=== PATIENT | female | born 1965 | race Two or more races ===

== ENCOUNTER 2017-01-15 10:33 | Emergency (ER) | payer SELFPAY ==
[2017-01-15 11:05] LABS: HCG,QUALITATIVE URINE NEGATIVE
[2017-01-15] MEDS ORDERED: ACETAMINOPHEN 325 MG TABLET ONE (12:07)
[2017-01-15] MEDS ORDERED: KETOROLAC TROMETHAMINE 30 MG/ML 1 ML VIAL ONE (12:07)
[2017-01-15] MEDS ORDERED: DEXAMETHASONE 4 MG TABLET ONE (12:36)
== END 2017-01-15 12:52 | disposition home or self-care (01) ==
LOC: ED 10:33
DX: M54.5 Low back pain (principal); F17.210 Nicotine dependence, cigarettes, uncomplicated
CPT/HCPCS: 81025; 99283 ×2; 96372; 51798; A9270 ×2; J1885